=== PATIENT | female | born 1985 | race Caucasian/White ===

== ENCOUNTER 2021-02-02 14:09 | Inpatient (IN) ==
[2021-02-02] MEDS ORDERED: Dinoprostone 10 MG VAG.SUPP VAGINAL ONE (15:01)
[2021-02-02 15:38] LABS: Rapid COVID-19 Molecular Undetected (Undetected)
[2021-02-02 15:51] LABS: Urine Benzodiazepine Screen None Detected (None Detect); Urine Cannabinoids Screen None Detected (None Detect); Urine Opiates Screen None Detected (None Detect)
[2021-02-02] MEDS ORDERED: BUDESONIDE FORMOTEROL INH PRN (16:00)
[2021-02-03] MEDS ORDERED: Pneumococcal Vac 23-Polyvalent IM ONE (09:00)
[2021-02-03] MEDS: Mometasone 220 MCG MDI INH SCH (15:24)
[2021-02-03] MEDS ORDERED: Lactated Ringers 1000 ml BAG 1,000 ML IV SCH (19:00)
[2021-02-03] MEDS ORDERED: Oxytocin in LR 20 UNITS/1,000 ML BAG IVPB SCH (19:00)
[2021-02-03 20:20] LABS: ABS Monocytes 0.6 10^3/ul (0-0.8); ABS Neutrophils 6.2 10^3/ul (1.5-7.7); Eosinophil % 0.3 %; Hematocrit 39 % (35-47); Hemoglobin 13.3 g/dL (12.0-16.0); Lymphocyte % 12.9 %; Mean Corpuscular HGB Conc 34 g/dL (31-36); Mean Corpuscular Hemoglobin 31 pg (27-31); Mean Corpuscular Volume 91 fL (80-97); Mean Platelet Volume 8.6 fL (7.4-10.4); Platelet Count 206 10^3/uL (150-450); Red Blood Count 4.26 10^6 /uL (3.70-4.87); Red Cell Distribution Width 15 % (10-15); White Blood Count 7.9 10^3/uL (3.5-10.8)
[2021-02-03 20:42] LABS: Albumin 3.7 g/dL (3.2-5.2); Albumin/Globulin Ratio 1.1 (1-3); Calcium 9.2 mg/dL (8.6-10.3); EGFR African American 129.4 (>60); EGFR Non-African American 106.9 (>60); Globulin 3.5 g/dL (2-4); Potassium 4.1 mmol/L (3.5-5.0); Total Bilirubin 0.4 mg/dL (0.2-1.0); Total Protein 7.2 g/dL (6.4-8.9); Uric Acid 4.9 mg/dL (2.3-6.6)
[2021-02-04] MEDS ORDERED: Dibucaine 1% OINT 28.35 GM TUBE PR PRN (02:16)
[2021-02-04] MEDS ORDERED: Witch Hazel PAD JAR TOPICAL PRN (02:16)
[2021-02-04] MEDS ORDERED: Lactated Ringers 1000 ml BAG 1,000 ML IV SCH (03:00)
[2021-02-04] MEDS ORDERED: Oxytocin in LR 20 UNITS/1,000 ML BAG IVPB SCH (03:00)
[2021-02-04] MEDS ORDERED: Lidocaine 1% VIAL 10 MG/ML VIAL ONE (03:04)
[2021-02-04] MEDS ORDERED: witch hazeL 43% TOP.SOLN 200 ML PHA COMPOUND TOPICAL PRN (04:19)
[2021-02-04] MEDS: Mometasone 220 MCG MDI INH SCH ×2 (20:29→20:32)
[2021-02-05 07:52] VITALS: BP 130/77
[2021-02-05 08:33] LABS: ABS Eosinophils 0.1 10^3/ul (0-0.6); ABS Lymphocytes 1.6 10^3/ul (1.0-4.8); ABS Monocytes 0.8 10^3/ul (0-0.8); ABS Neutrophils 5.9 10^3/ul (1.5-7.7); Eosinophil % 0.8 %; Hematocrit 31 % (35-47); Hemoglobin 10.5 g/dL (12.0-16.0); Lymphocyte % 19.1 %; Mean Corpuscular HGB Conc 34 g/dL (31-36); Mean Corpuscular Hemoglobin 31 pg (27-31); Mean Corpuscular Volume 92 fL (80-97); Mean Platelet Volume 7.8 fL (7.4-10.4); Platelet Count 208 10^3/uL (150-450); Red Blood Count 3.35 10^6 /uL (3.70-4.87); Red Cell Distribution Width 15 % (10-15); White Blood Count 8.4 10^3/uL (3.5-10.8)
[2021-02-05] MEDS ORDERED: Varicella Virus Vaccine Live 0.5 ML VIAL SUBCUT ONE (12:45)
== END 2021-02-05 16:51 | disposition home or self-care (01) | DRG 807 ==
LOC: MCHOBOUT 14:09 → MCHOB 14:42
PROVIDERS: ADMIT Midwife; ATTEND Midwife